=== PATIENT | male | born 1930 | race Caucasian/White ===

== ENCOUNTER 2017-12-18 22:46 | Emergency (ER) | payer MEDICARE, OTHER ==
[~2017-12-18] VITALS: Ht 175.3 cm; Wt 59.0 kg
[~2017-12-18 22:46] MED LIST: ASPI-1265 PO; CLA10T PO; DOCU-28 PO; DRON400T2 PO; HYDR25TA4 PO; LOSA25TA96 PO; OMEP-84 PO; RIVA20TA PO; SIMV20TA5 PO; SOLI5TAB2 PO
[2017-12-18 22:48] VITALS: BP 166/74
[2017-12-18] MEDS ORDERED: LIDOcaine 1.5% w/epinephrine 1:200,000 5ml ampul IJ ONE (23:25)
== END 2017-12-18 23:59 | disposition home or self-care (01) ==
LOC: ER 22:47
DX: T81.89XA Other complications of procedures, not elsewhere classified, initial encounter (principal); L76.22 Postprocedural hemorrhage of skin and subcutaneous tissue following other procedure; Z48.01 Encounter for change or removal of surgical wound dressing; I48.91 Unspecified atrial fibrillation; I25.10 Atherosclerotic heart disease of native coronary artery without angina pectoris; E78.00 Pure hypercholesterolemia, unspecified; J45.909 Unspecified asthma, uncomplicated; E11.9 Type 2 diabetes mellitus without complications; Z95.0 Presence of cardiac pacemaker; Z98.890 Other specified postprocedural states; Z86.73 Personal history of transient ischemic attack (TIA), and cerebral infarction without residual deficits; Z79.82 Long term (current) use of aspirin; Z79.899 Other long term (current) drug therapy; Y92.89 Other specified places as the place of occurrence of the external cause
CPT/HCPCS: 12020; 99284